=== PATIENT | male | born 1960 | race Caucasian/White ===

== ENCOUNTER 2017-11-04 03:11 | Observation (INO) | payer OTHER, SELFPAY ==
[2017-11-04] VITALS (15 sets, daily range): BP systolic 113–163; BP diastolic 66–90; PULSE 55–67; RESP 11–18; TEMP 36.4–36.8; O2SAT 95–98; BMI 30.7
--- NOTE | 2017-11-04 03:14 | ED.RN ---
CALLED FOR EKG PER RN REQUEST, PULLED OLD EKG'S FOR
--- NOTE | 2017-11-04 03:25 | EKG12_ITS ---
Test Reason : CP Blood Pressure : / mmHG Vent. Rate : 065 BPM Atrial Rate : 065 BPM P-R Int : 184 ms QRS Dur : 108 ms QT Int : 398 ms P-R-T Axes : 054 001 026 degrees QTc Int : 413 ms Normal sinus rhythm Normal ECG Confirmed by FELIX BOUDREAUX, BHARATHI ([id number]), rewrite editor FLACA DALY ([id number]) on 11/05/2017 2:34:22 PM Referred By: CAITIE Confirmed By:BHARATHI WASHINGTON MD
--- NOTE | 2017-11-04 03:30 | RAD_ITS ---
STUDY: X-RAY CHEST REASON FOR EXAM: Male, 57 years old. Chest pain TECHNIQUE: Frontal and lateral views of the chest. COMPARISON: 06/22/2016 FINDINGS: The lungs are clear and expanded. There is no demonstrated pleural abnormality. Normal size heart. Normal mediastinum and kiah. Normal visualized pulmonary arteries. Normal visualized aortic arch and descending thoracic aorta. Normal visualized thoracic spine. Normal visualized ribs, clavicles, and shoulders. Abdominal clips on the left. RAD/Chest PA and Lateral IMPRESSION: No acute pulmonary findings. Electronically Signed: Scooter Chin MD at 4:13 EDT Tel , Service support ,
[2017-11-04 03:34] LABS: Absolute Lymphocyte Count 2.26 X10^3/ul (0.83-4.51); Absolute Neutrophil Count 2.7 X10^3/uL (2.0-7.7); Basophil# 0.04 X10^3/uL; Basophil% 0.7 % (0-1); Eosinophil# 0.32 X10^3/uL; Eosinophils% 5.4 % (0-5); Hemoglobin 15.3 g/dl (13.0-16.5); Lymphocyte # 2.26 X10^3/ul (4.0); Lymphocyte % 37.8 % (19-41); Mean Corp Hgb Conc 34.8 g/gl (32-36); Mean Corpuscular Hgb 30.2 pg (27.0-32.0); Mean Corpuscular Volume 86.8 fL (80-94); Mean Platelet Vol. 9.3 fl (6.2-12.0); Monocyte# 0.62 X10^3/uL; Monocyte% 10.4 % (0-10); Neutrophil # 2.73 X10^3/uL (2.7-7.7); Neutrophil % 45.5 % (47-70); Platelet Count 230 K/mm3 (150-450); RBC Distribution Width CV 12.5 % (11.6-14.6); RBC Distribution Width SD 39.2 fl (35.1-43.9); Red Blood Count 5.07 M/mm3 (4.6-6.2)
[2017-11-04 03:37] LABS: POSITIVE COUNT NO; POSITIVE DIFFERENTIAL NO; POSITIVE MORPHOLOGY NO
[2017-11-04] MEDS: Aspirin 81 MG TAB.CHEW 324 MG PO (03:38)
[2017-11-04 04:09] LABS: Anion Gap 7 (5-15); BUN 14 mg/dL (7-18); BUN/Creat Ratio 17.3 RATIO (10-20); Calcium,Total 8.8 mg/dL (8.5-10.1); Chloride 109 mmol/L (98-107); Creatinine, Serum 0.81 mg/dL (0.70-1.30); EST Glomerular Filtration Rate 105 mL/min (>60); Est Glom Filt Rate - Afr Amer 127 mL/min (>60); Estimated Creatinine Clearance 121.71 ml/min; Glucose 98 mg/dL (74-106); Potassium 3.9 mmol/L (3.5-5.1); Sodium Level 142 mmol/L (136-145)
--- NOTE | 2017-11-04 04:30 | ED.DCSUM_ITS ---
- ER Visit Summary Date of Service: 11/04/17 Chief Complaint: Chest pain History of Present Illness: The patient is a 57 M who presents with chest pain. It began 2 hours ago. It woke him from sleep. It is intermittent. He states it lasts 3-5 minutes at a time and he describes this as a heaviness. Currently he is pain-free. However during his episodes of pain he rates this as severe at 10 out of 10. There is no associated nausea vomiting diaphoresis or shortness of breath. He also had some pain on the top of his left hand. He is a smoker but denies history of diabetes hypertension hyperlipidemia or family history of coronary disease. Physical Examination: Blood pressure 163/90 vitals otherwise unremarkable Moist mucous membranes Heart regular rate and rhythm Lungs are clear Abdomen soft Extremities nontender without edema 2+ radial pulses Alert Test Results: EKG shows sinus rhythm at a rate of 65 with no acute ischemic changes. CBC BMP unremarkable and troponin negative. Emergency Department Course and Treatment: Patient was given aspirin he had taken 1 baby aspirin prior to presentation here. His KUSH risk score is 2. His heart score is 2. Given the risk associated with KUSH risk score of 2 I recommended hospital observation for serial enzymes and EKG possible stress testing. Patient will be discussed with the hospitalist and admitted. Treatment Plan: [] Disposition: Admit Impression: Chest pain This note was generated with [employer] dictation software. It may contain incorrect words, spelling, and punctuation that were not noted in review of the chart prior to signing ED Disposition - Plan for ED Patient: Chief Complaint: Chest Pain Referrals: Nelli Kendall DO [Primary Care Provider] -
--- NOTE | 2017-11-04 05:15 | PCM.HP.STD ---
Problem List (1) HTN (hypertension) Status: Chronic (2) Chest pain Status: Acute (3) Tobacco abuse Status: Acute History of Present Illness Date of Admission: 11/04/17 Chief Complaint: Chest pain The patient is a 57 year old male w/ h/o HTN and tobacco abuse admitted for chest pain. 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 Pain lasted for minutes but would reoccurred. Pt also had to burp after the pain. Pain was not associated with exertion. No increase stressors or change in diet. He never had this type of pain before. Nothing made the pain better or worse. No radiation of pain. The intensity and frequency of the pain increased so he went to the ED for further workup. Past Medical History Past Medical History (Chronic Problems): Chronic Problems HTN (hypertension) (Chronic) Allergies LODINE Adverse Reaction (Uncoded 11/04/17 03:16) Nausea Home Medications: Ambulatory Orders Medication Instructions Recorded NK [NK] 11/04/17 Surgical History: no surgical history Lives: Alone Smoking Status: Current every day smoker Alcohol: None Drugs: None - *Family History Maternal History Items: No pertinent history Review of Systems Constitutional: Denies: Chills, Fever, Weight Change HEENT: Denies: Head Aches, Sinus Congestion, Sinus Drainage Cardiovascular: Reports: Chest Pain. Denies: Palpitations Respiratory: Denies: Cough, Shortness of breath at rest, Sputum production Gastrointestinal: Denies: Abdominal Pain, Nausea, Vomiting Genitourinary: Denies: Dysuria Musculoskeletal: Denies: Joint Pain, Joint Tenderness Skin: Denies: Rash, Wounds Neurological: Denies: Numbness, Tingling, Focal weakness Psychiatric: Denies: Anxiety, Depression, Homicidal Ideations, Suicidal Ideations Hematologic/ Lymphatic: Denies: Easy Bruising, Easy Bleeding VTE Information - Inpt Only VTE Present on Admission: No VTE Mechan Device Prophylaxis: SCD's VTE Pharm Prophylaxis ordered?: Yes Patient Problems: Active and Suspected Problems Chest pain (Acute) Tobacco abuse (Acute) - Physical Exam General: Alert, Oriented x3, Cooperative HEENT: Atraumatic, PERRLA, EOMI, Normocephalic Neck: Supple, No JVD, Negative Carotid Bruits Lungs: Clear to auscultation, Normal air movement Cardiovascular: Regular rate, No murmurs Abdomen: Bowel Sounds Present, Soft, Non Tender Extremities: No edema, Capillary Refill Less than 3 Seconds Skin: No rashes, No breakdown Musculoskeletal: No Tenderness to Palpation of Joints or Extremities Neurological: Cranial nerves II-XII grossly intact Psych/Mental Status: Normal Affect, Appropriate Vital Signs Temp Pulse Resp BP Pulse Ox 98.1 F 57 L 11 L 140/80 H 96 11/04/17 03:13 11/04/17 04:54 11/04/17 04:54 11/04/17 04:54 11/04/17 04:54 Oxygen Delivery Method Room Air Weight: 111.6 kg Body Mass Index (BMI) 30.7 Laboratory Tests Past 24 Hrs 11/04/17 11/04/17 03:20 03:20 WBC 6.0 RBC 5.07 Hgb 15.3 Hct 44.0 MCV 86.8 MCH 30.2 MCHC 34.8 RDW 12.5 RDW Differential 39.2 Plt Count 230 MPV 9.3 Immature Gran % (Auto) 0.200 Neut % (Auto) 45.5 L Lymph % (Auto) 37.8 [place] % (Auto) 10.4 H Eos % (Auto) 5.4 H Baso % (Auto) 0.7 Absolute Neuts (auto) 2.7 Absolute Lymphs (auto) 2.26 Total Counted Not Reportable Sodium 142 Potassium 3.9 Chloride 109 H Carbon Dioxide 26.0 Anion Gap 7 BUN 14 Creatinine 0.81 Estim Creat Clear Calc 121.71 Est GFR (MDRD) Af Amer 127 Est GFR (MDRD) Non-Af 105 BUN/Creatinine Ratio 17.3 Glucose 98 Calcium 8.8 Troponin I < 0.015 Assessment/Plan Active and Suspected Problems Chest pain (Acute) Tobacco abuse (Acute) 57 year old male w/ h/o HTN and tobacco abuse admitted for chest pain. 1) Chest pain: Heart score 2 EKG and chest xray wnl. Will get serial trops. Will also start ASA, lipitor, and coreg. Nitro PRN. ECHO in AM. Stress test in AM. 2) HTN: SBP 120s. C/w coreg. 3) Tobacco abuse: Education. Supportive care. 4) Prophylaxis: Lovenox / SCD.
--- NOTE | 2017-11-04 05:55 | ECHOD_ITS ---
Reason For Study: AFIB Procedure This was a 2D Doppler, Color Flow transthoracic echocardiogram. Exam performed portable in patient room. Left Ventricle Normal LV size. Left ventricular systolic function is normal. The estimated ejection fraction is 60 %. No evidence for diastolic dysfunction. No regional wall motion abnormalities noted. Right Ventricle Normal RV size. Normal systolic function. Atria The left atrium is mildly enlarged. The right atrium is mildly enlarged. Mitral Valve There is mild mitral annular calcification. Trivial eccentric mitral valve insufficiency. Tricuspid Valve Normal tricuspid valve. Aortic Valve Trisinus/trileaflet aortic valve. Pulmonic Valve The pulmonic valve is not well visualized. Great Vessels Normal aortic root. The pulmonary artery is normal size. Normal inferior vena cava. Pericardium/Pleural No pericardial effusion. MMode/2D Measurements & Calculations LVIDd: 6.0 cm IVSd: 0.84 cm Ao root diam: 2.9 cm LVIDs: 3.5 cm LVPWd: 1.1 cm LA dimension: 4.1 cm RVDd: 3.3 cm FS: 42.1 % LAV(MOD-bp): 74.1 ml EDV(MOD-sp4): 158.6 ml EDV(MOD-sp2): 126.2 ml LAV(MOD-bp) Indexed: 31.0 ml/m2 ESV(MOD-sp4): 60.3 ml EF(MOD-sp2): 62.1 % LAV(MOD-sp2): 84.9 ml EF(MOD-sp4): 62.0 % LAV(MOD-sp4): 59.5 ml SV(MOD-sp4): 98.3 ml SV(MOD-sp2): 78.4 ml LA A4 area: 22.3 cm2 RA A4 area: 21.1 cm2 Doppler Measurements & Calculations MV E max camron: 77.5 cm/sec Lat Peak E' Camron: 11.1 cm/sec Med Peak E' Camron: 7.9 cm/sec MV A max camron: 76.3 cm/sec E/E' lat: 7.0 E/E' med: 9.8 MV E/A: 1.0 Ao V2 max: 170.9 cm/sec LV V1 max: 146.7 cm/sec Ao max P.7 mmHg LV V1 max P.6 mmHg Interpretation Summary Normal LV size. Left ventricular systolic function is normal. The estimated ejection fraction is 60 %. No evidence for diastolic dysfunction. There is mild mitral annular calcification. Trivial eccentric mitral valve insufficiency. Ordering Physician: David Bloom Referring Physician: SALOME SHULTZ Performed By: Melissa Posadas, THAOCS, RVT
--- NOTE | 2017-11-04 05:57 | EKG12_ITS ---
Test Reason : AM EKG Blood Pressure : / mmHG Vent. Rate : 057 BPM Atrial Rate : 057 BPM P-R Int : 188 ms QRS Dur : 108 ms QT Int : 414 ms P-R-T Axes : 051 001 021 degrees QTc Int : 402 ms Sinus bradycardia Otherwise normal ECG When compared with ECG of 04-NOV-2017 13:12, MANUAL COMPARISON REQUIRED, DATA IS UNCONFIRMED Confirmed by FELIX BOUDREAUX, BHARATHI ([id number]), news video editor FLACA DALY ([id number]) on 11/06/2017 3:20:31 PM Referred By: NINA Confirmed By:BHARATHI WASHINGTON MD
[2017-11-04] MEDS: Enoxaparin 40 MG/0.4 ML Syringe SC (06:27)
--- NOTE | 2017-11-04 06:41 | PN_ITS ---
Patient Problems: Active and Suspected Problems Chest pain (Acute) Tobacco abuse (Acute) Subjective: The patient is a 57-year-old male with a past medical history of tobacco dependence who presented to the [facility] emergency department on 11/04/2017 complaining of chest pain that awoke him from sleep. Troponin was less than 0.015 at admission. Chest x-ray showed no pulmonary vascular congestion, pleural effusions or infiltrates. EKG showed normal sinus rhythm with no acute ischemic change. He was admitted to a monitored bed on the progressive care unit and serial cardiac enzymes, echocardiogram and stress test were ordered. He was started on aspirin 81 mg daily, atorvastatin 40 mg nightly, Coreg 6.25 mg twice daily and sublingual nitroglycerin. Heart score is 2. Risk factors include age > 45, smoking....he denies any hx of HTN......this dx was made when the BP was increased at presentation to the ED Afebrile, vital signs stable. Blood pressure has improved since presentation to the emergency room and the current blood pressure is 132/82. He is 96-98% saturated on room air. CP awoke him from sleep at about 0130. It was in the left chest and was severe ......he also had some pain in the Left hand at the same time. He did not get nauseated or diaphoretic and he denies SOB. There is no FH of CVD. Mother and father are both alive with no significant medical hx. He has a brother who is diabetic but has no hx of CAD. He denies pain with climbing steps, lifting 20 lbs at work. No pain since admission to the hospital. Telemetry shows NSR with no significant ectopy. Troponin X 3 are negative. EKG's without pain are normal with no evidence ischemia. Has never had a stress test. Objective: General: alert, oriented X3, NAD, appropriate with normal affect Neck: supple, trachea midline, carotids have brisk upstroke and normal pulse volume, no JVD, no carotid bruits Lungs: CTA, diminished, symmetric chest expansion, not tachypneic, able to lie flat with no respiratory distress Heart: Regular rate and rhythm, normal S1, normal S2, no murmur, no gallop, no rub, PMI is on the midclavicular line Abdomen: soft, NT, ND, BS's present Extremities: no edema, no calf tenderness, peripheral pulses are normal - Physical Exam Vital Signs Temp Pulse Resp BP Pulse Ox 97.5 F L 61 18 131/73 H 97 11/04/17 06:00 11/04/17 06:00 11/04/17 06:00 11/04/17 06:01 11/04/17 06:00 Oxygen Delivery Method Room Air Weight: 238 lb 12.17 oz Body Mass Index (BMI) 30.7 Medical Necessity - Tobacco Use Smoking Status: Current every day smoker Assessment/Plan Active and Suspected Problems Chest pain (Acute) Tobacco abuse (Acute) Impressions 1. chest pain in a male pt with a heart score of 2......low risk 2. HTN? - he does not carry this diagnosis....this was made based on the BP's in the ED last night 3. tobacco dependence He is at low risk. Will DC the Atorvastatin and the beta alta. Continue the ASA. Smoking cessation counselling given. He would like to quit and is requesting Nicotine gum Encouraged him to ambulate in the halls and to notify his nurse if any chest comfort so that we may obtain a EKG with CP ECHO in the AM to evaluate wall motion, chamber size and LV wall thickness Stress in the AM Continue to monitor the BP......if it increases or if he has LVH on the ECHO will need to be discharged on an antihypertensive....would likely pick a once a day drug such as Atenolol or and CHETAN or ARB
[2017-11-04 06:55] LABS: Hematocrit 42.4 % (40-54); Hemoglobin 14.3 g/dl (13.0-16.5); Mean Corp Hgb Conc 33.7 g/gl (32-36); Mean Corpuscular Hgb 29.4 pg (27.0-32.0); Mean Corpuscular Volume 87.1 fL (80-94); Mean Platelet Vol. 9.4 fl (6.2-12.0); Platelet Count 185 K/mm3 (150-450); RBC Distribution Width CV 12.6 % (11.6-14.6); RBC Distribution Width SD 40.2 fl (35.1-43.9); Red Blood Count 4.87 M/mm3 (4.6-6.2)
[2017-11-04 06:57] LABS: Scan Indicated on CBC? Y/N NO
[2017-11-04 07:05] LABS: D-Dimer Quantitative (DVT/PE) 0.34 FEU/ug/m (0.27-0.49)
[2017-11-04 07:14] LABS: ALB/GLOB Ratio 1.2 RATIO (0.9-2.4); AST(SGOT) 18 U/L (15-37); Alanine Aminotransfer ALT/SGPT 24 U/L (16-61); Albumin, Serum 3.7 g/dL (3.2-5.0); Alkaline Phosphatase 60 U/L (45-117); Anion Gap 5 (5-15); BUN 13 mg/dL (7-18); BUN/Creat Ratio 20.5 RATIO (10-20); Calcium,Total 8.5 mg/dL (8.5-10.1); Chloride 109 mmol/L (98-107); Cholesterol 149 mg/dL (200); Creatinine, Serum 0.63 mg/dL (0.70-1.30); EST Glomerular Filtration Rate 139 mL/min (>60); Est Glom Filt Rate - Afr Amer 168 mL/min (>60); Estimated Creatinine Clearance 152.22 ml/min; Glucose 97 mg/dL (74-106); High Density Lipoprotein 45 mg/dL; Potassium 3.9 mmol/L (3.5-5.1); Protein, Total 6.7 g/dL (6.4-8.2); Sodium Level 139 mmol/L (136-145); Triglycerides 52 mg/dL; Very Low Density Lipoprotein 10 mg/dL (5-40)
[2017-11-04 07:20] LABS: Thyroid Stim Hormone (TSH) 0.77 uIU/mL (0.358-3.74)
[2017-11-04 09:37] LABS: Amphetamine Urine VISTA NEGATIVE (<1000 ng/mL); Barbiturate Urine VISTA NEGATIVE (< 200 ng/mL); Benzodiazepine Urine VISTA NEGATIVE (< 200 ng/mL); Cocaine Urine VISTA NEGATIVE (< 300 ng/mL); Ecstacy Urine VISTA NEGATIVE (< 500 ng/mL); Methadone Urine VISTA NEGATIVE (< 300 ng/mL); PCP Urine VISTA NEGATIVE (< 25 ng/mL); THC Urine VISTA NEGATIVE (< 50 ng/mL); Vista UDS pH Range 7
[2017-11-04] MEDS: Carvedilol 6.25 MG Tablet PO (10:21)
[2017-11-04] MEDS: 0.9% NaCl Peripheral Flush Adult/Peds IV (10:21)
--- NOTE | 2017-11-04 13:03 | EKG12_ITS ---
Test Reason : CP Blood Pressure : / mmHG Vent. Rate : 062 BPM Atrial Rate : 062 BPM P-R Int : 192 ms QRS Dur : 098 ms QT Int : 374 ms P-R-T Axes : 048 013 017 degrees QTc Int : 379 ms Normal sinus rhythm Normal ECG When compared with ECG of 04-NOV-2017 05:55, MANUAL COMPARISON REQUIRED, DATA IS UNCONFIRMED Confirmed by FELIX BOUDREAUX, BHARATHI ([id number]), acquisition editor FLACA DALY ([id number]) on 11/06/2017 3:22:12 PM Referred By: NINA Confirmed By:BHARATHI WASHINGTON MD
[2017-11-04] MEDS: BENZOCAINE/MENTHOL 1 LOZENGE MUCOUS MEM ×2 (13:05→21:56)
[2017-11-04] MEDS: Nicotine Polacrilex 2 MG GUM PO ×3 (13:40→21:52)
[2017-11-05 02:59] VITALS: PULSE 56
[2017-11-05 04:37] VITALS: BP 137/76; PULSE 51; RESP 16; TEMP 36.8; O2SAT 96
[2017-11-05 05:52] LABS: Absolute Lymphocyte Count 1.79 X10^3/ul (0.83-4.51); Absolute Neutrophil Count 2.8 X10^3/uL (2.0-7.7); Basophil# 0.03 X10^3/uL; Basophil% 0.6 % (0-1); Eosinophil# 0.31 X10^3/uL; Eosinophils% 5.9 % (0-5); Hematocrit 45.5 % (40-54); Hemoglobin 15.3 g/dl (13.0-16.5); Lymphocyte # 1.79 X10^3/ul (4.0); Lymphocyte % 33.9 % (19-41); Mean Corp Hgb Conc 33.6 g/gl (32-36); Mean Corpuscular Hgb 29.4 pg (27.0-32.0); Mean Corpuscular Volume 87.5 fL (80-94); Mean Platelet Vol. 9.6 fl (6.2-12.0); Monocyte# 0.38 X10^3/uL; Monocyte% 7.2 % (0-10); Neutrophil # 2.76 X10^3/uL (2.7-7.7); Neutrophil % 52.2 % (47-70); Platelet Count 215 K/mm3 (150-450); RBC Distribution Width CV 12.6 % (11.6-14.6); RBC Distribution Width SD 40.2 fl (35.1-43.9); White Blood Count 5.3 K/mm3 (4.4-11.0)
--- NOTE | 2017-11-05 05:55 | EKG12_ITS ---
Test Reason : CP Blood Pressure : / mmHG Vent. Rate : 058 BPM Atrial Rate : 058 BPM P-R Int : 184 ms QRS Dur : 104 ms QT Int : 412 ms P-R-T Axes : 039 015 027 degrees QTc Int : 404 ms Sinus bradycardia Otherwise normal ECG When compared with ECG of 22-JUN-2016 16:21, No significant change was found Confirmed by FELIX BOUDREAUX, BHARATHI ([id number]), television news video editor FLACA DALY ([id number]) on 11/06/2017 3:23:01 PM Referred By: NINA Confirmed By:BHARATHI WASHINGTON MD
[2017-11-05 06:00] LABS: Partial Thromboplast Time 34.2 Seconds (24.1-36.2); Prothrombin Time (Protime)PT. 13.2 SECONDS (11.7-14.9)
[2017-11-05 06:01] LABS: Anion Gap 7 (5-15); BUN 14 mg/dL (7-18); Calcium,Total 8.9 mg/dL (8.5-10.1); Chloride 106 mmol/L (98-107); Creatinine, Serum 0.78 mg/dL (0.70-1.30); EST Glomerular Filtration Rate 110 mL/min (>60); Est Glom Filt Rate - Afr Amer 132 mL/min (>60); Estimated Creatinine Clearance 122.95 ml/min; Glucose 102 mg/dL (74-106); Potassium 4.2 mmol/L (3.5-5.1); Sodium Level 141 mmol/L (136-145)
[2017-11-05] MEDS: Aspirin E.C. 81 MG Tablet PO (06:04)
[2017-11-05 06:15] LABS: POSITIVE COUNT NO; POSITIVE DIFFERENTIAL NO; POSITIVE MORPHOLOGY NO
[2017-11-05 06:52] VITALS: PULSE 48
[2017-11-05 10:10] VITALS: BP 127/77; PULSE 61; RESP 16; TEMP 36.6; O2SAT 96
[2017-11-05] MEDS: Nicotine Polacrilex 2 MG GUM PO (10:16)
[2017-11-05] MEDS: BENZOCAINE/MENTHOL 1 LOZENGE MUCOUS MEM (10:16)
[2017-11-05 11:07] VITALS: PULSE 64
--- NOTE | 2017-11-05 13:26 | STRESSREP_ITS ---
Stress Test Report Exercise myocardial perfusion stress test. 57-year-old man with a history of chest pain. Stress protocol: Resting EKG demonstrates normal sinus rhythm with a rate of 61 beats minute normal intervals and noted resting blood pressure is 124/88 mmHg. The patient exercised according to regular Cabrera protocol for total duration of 8 minutes completing 2 minutes into stage III of the Cabrera protocol the maximum heart rate attained was 139 bpm which was 84% of maximum predicted heart rate the maximum workload attained was 10.1 metabolic equivalents. Patient maintained sinus rhythm throughout the recording. At rest there were no ST or T-wave changes noted suggest ischemia peak exercise upsloping ST changes only were noted with no meet the criteria for ischemia. No clinical angina was noted. The test was terminated due to leg fatigue. The resting blood pressure is 124/ 88 with a peak blood pressure 172/80 mmHg. Cardial perfusion protocol. 13.3 mCi of technetium 99m sestamibi was injected at rest. The patient exercised a consult regular Cabrera protocol for 8 minutes attaining 84% of maximum predicted heart rate at peak exercise 45.0 mCi of technetium 99m sestamibi was injected stress images were obtained stress and rest images were reconstructed and compared in the short axis vertical long and horizontal long axis. Gated images were also obtained pre- Perfusion SPECT analysis: Review of the stress images demonstrate normal uptake of tracer noted in all areas of the myocardium. The resting images similarly demonstrate normal uptake of tracer noted in all areas of the myocardium. No areas of reversibility are noted suggest ischemia and no previous infarct is noted. Gated SPECT analysis: The gated ejection fraction is 64%. Conclusion: Exercise myocardial perfusion stress test with no evidence of ischemia at a high workload. No clinical angina noted. Preserved ejection fraction.
[2017-11-05 15:02] VITALS: PULSE 64
--- NOTE | 2017-11-05 15:38 | PCM.DC ---
- Discharge Diagnoses Current Active Problems: Current Active and Chronic Problems HTN (hypertension) (Chronic) Chest pain (Acute) Tobacco abuse (Acute) You will use the following diet at home:: No restrictions Your food should be the consistency of: Regular Your liquids should be the consistency of: Regular/Thin Discharge Activity: Return to Normal Activity Call your doctor if you observe: Fever of 101 or Higher, Shortness of breath, Dizziness, Fainting spells, Swelling in the ankles, Chest pain Additional Instructions: The stress test showed no evidence that there is any significant disease in the arteries in your heart. The heart squeezes noramlly and there was no problem with the rhythm of the heart on the clinical research monitor. I do recommend that you stop smoking before you develop significant coronary disease. I also recommend that you take 1 baby aspirin daily to help prevent strokes and heart attacks. Pending Tests on Discharge: none Allergies/Adverse Reactions: Allergies LODINE Adverse Reaction (Uncoded 11/04/17 03:16) Nausea Medications to take at Discharge NK [NK] 11/04/17 Primary Care Physician: Nelli Kendall DO [Primary Care Provider] - Please follow up with your Primary Care Physician in: as needed Proposed Discharge Date: 11/05/17
--- NOTE | 2017-11-05 15:44 | DCINST_ITS ---
- Discharge Diagnoses Current Active Problems: Current Active and Chronic Problems HTN (hypertension) (Chronic) Chest pain (Acute) Tobacco abuse (Acute) You will use the following diet at home:: No restrictions Your food should be the consistency of: Regular Your liquids should be the consistency of: Regular/Thin Discharge Activity: Return to Normal Activity Call your doctor if you observe: Fever of 101 or Higher, Shortness of breath, Dizziness, Fainting spells, Swelling in the ankles, Chest pain Additional Instructions: The stress test showed no evidence that there is any significant disease in the arteries in your heart. The heart squeezes noramlly and there was no problem with the rhythm of the heart on the residential monitor. I do recommend that you stop smoking before you develop significant coronary disease. I also recommend that you take 1 baby aspirin daily to help prevent strokes and heart attacks. Pending Tests on Discharge: none Allergies/Adverse Reactions: Allergies LODINE Adverse Reaction (Uncoded 11/04/17 03:16) Nausea Medications to take at Discharge NK [NK] 11/04/17 Primary Care Physician: Nelli Kendall DO [Primary Care Provider] - Please follow up with your Primary Care Physician in: as needed Proposed Discharge Date: 11/05/17
--- NOTE | 2017-11-05 15:44 | PCM.DC.SUM ---
Discharge Date and Diagnosis Date of Admission: 11/04/17 Date of Discharge: 11/05/17 - Primary Discharge Diagnosis Active and Suspected Problems Chest pain (Acute) - non-cardiac, suspect GERD or musculoskeletal HTN - ruled out - Secondary Discharge Diagnosis Tobacco dependence Hospital Course and Treatment Imaging Results: Clinical Impression(s) from Imaging Studies Chest X-Ray 11/04/17 03:30 IMPRESSION: No acute pulmonary findings. Electronically Signed: Scooter Chin MD at 4:13 EDT Tel , Service support , Laboratory Tests 11/04/17 11/04/17 11/04/17 03:20 03:20 06:35 WBC 6.0 5.0 RBC 5.07 4.87 Hgb 15.3 14.3 Hct 44.0 42.4 MCV 86.8 87.1 MCH 30.2 29.4 MCHC 34.8 33.7 RDW 12.5 12.6 RDW Differential 39.2 40.2 Plt Count 230 185 MPV 9.3 9.4 Immature Gran % (Auto) 0.200 Neut % (Auto) 45.5 L Lymph % (Auto) 37.8 [place] % (Auto) 10.4 H Eos % (Auto) 5.4 H Baso % (Auto) 0.7 Absolute Neuts (auto) 2.7 Absolute Lymphs (auto) 2.26 Total Counted Not Reportable PT INR APTT D-Dimer Quant (PE/DVT) Sodium 142 Potassium 3.9 Chloride 109 H Carbon Dioxide 26.0 Anion Gap 7 BUN 14 Creatinine 0.81 Estim Creat Clear Calc 121.71 Est GFR (MDRD) Af Amer 127 Est GFR (MDRD) Non-Af 105 BUN/Creatinine Ratio 17.3 Glucose 98 Calcium 8.8 Total Bilirubin AST ALT Alkaline Phosphatase Troponin I < 0.015 Total Protein Albumin Globulin Albumin/Globulin Ratio Triglycerides Cholesterol LDL Cholesterol VLDL Cholesterol HDL Cholesterol TSH Urine Opiates Screen Urine Methadone Screen Ur Barbiturates Screen Ur Phencyclidine Scrn Ur Amphetamines Screen U Methamphetamin-MDMA U Benzodiazepines Scrn Urine Cocaine Screen U Cannabinoids Screen Ur Drug Screen Comment 11/04/17 11/04/17 11/04/17 06:35 06:35 06:35 WBC RBC Hgb Hct MCV MCH MCHC RDW RDW Differential Plt Count MPV Immature Gran % (Auto) Neut % (Auto) Lymph % (Auto) [place] % (Auto) Eos % (Auto) Baso % (Auto) Absolute Neuts (auto) Absolute Lymphs (auto) Total Counted PT INR APTT D-Dimer Quant (PE/DVT) 0.34 Sodium 139 Potassium 3.9 Chloride 109 H Carbon Dioxide 25.0 Anion Gap 5 BUN 13 Creatinine 0.63 L Estim Creat Clear Calc 152.22 Est GFR (MDRD) Af Amer 168 Est GFR (MDRD) Non-Af 139 BUN/Creatinine Ratio 20.5 H Glucose 97 Calcium 8.5 Total Bilirubin 0.60 AST 18 ALT 24 Alkaline Phosphatase 60 Troponin I Total Protein 6.7 Albumin 3.7 Globulin 3.0 Albumin/Globulin Ratio 1.2 Triglycerides 52 Cholesterol 149 LDL Cholesterol 94 VLDL Cholesterol 10 HDL Cholesterol 45 TSH 0.77 Urine Opiates Screen Urine Methadone Screen Ur Barbiturates Screen Ur Phencyclidine Scrn Ur Amphetamines Screen U Methamphetamin-MDMA U Benzodiazepines Scrn Urine Cocaine Screen U Cannabinoids Screen Ur Drug Screen Comment 11/04/17 11/04/17 11/04/17 06:35 08:40 09:47 WBC RBC Hgb Hct MCV MCH MCHC RDW RDW Differential Plt Count MPV Immature Gran % (Auto) Neut % (Auto) Lymph % (Auto) [place] % (Auto) Eos % (Auto) Baso % (Auto) Absolute Neuts (auto) Absolute Lymphs (auto) Total Counted PT INR APTT D-Dimer Quant (PE/DVT) Sodium Potassium Chloride Carbon Dioxide Anion Gap BUN Creatinine Estim Creat Clear Calc Est GFR (MDRD) Af Amer Est GFR (MDRD) Non-Af BUN/Creatinine Ratio Glucose Calcium Total Bilirubin AST ALT Alkaline Phosphatase Troponin I < 0.015 < 0.015 Total Protein Albumin Globulin Albumin/Globulin Ratio Triglycerides Cholesterol LDL Cholesterol VLDL Cholesterol HDL Cholesterol TSH Urine Opiates Screen NEGATIVE Urine Methadone Screen NEGATIVE Ur Barbiturates Screen NEGATIVE Ur Phencyclidine Scrn NEGATIVE Ur Amphetamines Screen NEGATIVE U Methamphetamin-MDMA NEGATIVE U Benzodiazepines Scrn NEGATIVE Urine Cocaine Screen NEGATIVE U Cannabinoids Screen NEGATIVE Ur Drug Screen Comment 11/05/17 11/05/17 11/05/17 05:20 05:20 05:20 WBC 5.3 RBC 5.20 Hgb 15.3 Hct 45.5 MCV 87.5 MCH 29.4 MCHC 33.6 RDW 12.6 RDW Differential 40.2 Plt Count 215 MPV 9.6 Immature Gran % (Auto) 0.200 Neut % (Auto) 52.2 Lymph % (Auto) 33.9 [place] % (Auto) 7.2 Eos % (Auto) 5.9 H Baso % (Auto) 0.6 Absolute Neuts (auto) 2.8 Absolute Lymphs (auto) 1.79 Total Counted Not Reportable PT 13.2 INR 1.0 APTT 34.2 D-Dimer Quant (PE/DVT) Sodium 141 Potassium 4.2 Chloride 106 Carbon Dioxide 28.0 Anion Gap 7 BUN 14 Creatinine 0.78 Estim Creat Clear Calc 122.95 Est GFR (MDRD) Af Amer 132 Est GFR (MDRD) Non-Af 110 BUN/Creatinine Ratio 18.0 Glucose 102 Calcium 8.9 Total Bilirubin AST ALT Alkaline Phosphatase Troponin I Total Protein Albumin Globulin Albumin/Globulin Ratio Triglycerides Cholesterol LDL Cholesterol VLDL Cholesterol HDL Cholesterol TSH Urine Opiates Screen Urine Methadone Screen Ur Barbiturates Screen Ur Phencyclidine Scrn Ur Amphetamines Screen U Methamphetamin-MDMA U Benzodiazepines Scrn Urine Cocaine Screen U Cannabinoids Screen Ur Drug Screen Comment none Operations: None Procedures: 2-D Echocardiogram, Stress test Summary of Care Provided: The patient is a 57-year-old male with a past medical history of tobacco dependence who presented to the [facility] emergency department on 11/04/2017 complaining of chest pain that awoke him from sleep. Vital signs at presentation to the emergency room were temperature 98.1, pulse rate 66, blood pressure 163/90, respiratory rate 16 and he was 98% saturated on room air. Troponin was less than 0.015 at admission. Chest x-ray showed no pulmonary vascular congestion, pleural effusions or infiltrates. EKG showed normal sinus rhythm with no acute ischemic change. He was admitted to a monitored bed on the progressive care unit and serial cardiac enzymes, echocardiogram and stress test were ordered. He was started on aspirin 81 mg daily, atorvastatin 40 mg nightly, Coreg 6.25 mg twice daily and sublingual nitroglycerin. Serial cardiac enzymes were negative. Triglycerides were 52 and cholesterol was 149. The LDL was 94 and the HDL was 45. Echocardiogram showed normal left ventricular systolic function with a 60% ejection fraction. There was no evidence of diastolic dysfunction and there was no significant valvular heart disease. On 11/05/2017 he had a treadmill nuclear stress test and exercised 8 minutes completing minutes into stage III of the Cabrera protocol. The maximum heart rate was 139 which is 84% of his age-predicted maximum heart rate. Were no significant ST or T-wave changes and the test was terminated due to leg fatigue. Nuclear images showed normal uptake of tracer in all areas of the myocardium and there were no areas of reversibility to suggest ischemia. The gated nuclear ejection fraction was 64%. Blood pressures following admission to the floor were within normal limits. He was discharged home and will follow up with Dr. Kendall should he have recurrent chest pains. This note was generated with [employer] dictation software. It may contain incorrect words, spelling, and punctuation that were not noted in checking the note before signing. Discharge Activity: Return to Normal Activity Call your doctor if you observe: Fever of 101 or Higher, Shortness of breath, Dizziness, Fainting spells, Swelling in the ankles, Chest pain Home Medications: Medications to take at Discharge NK [NK] 11/04/17 Primary Care Physician: Nelli Kendall DO [Primary Care Provider] - Please follow up with your Primary Care Physician in: as needed Disposition: Home Minutes spent on discharge:: 30 Patient Condition:: Good Medical Necessity - Tobacco Use Smoking Status: Current every day smoker Meaningful Use Info Meaningful Use Diagnoses (Choose all that apply): None applicable Code Visit OBSV E&M: 26480 Observation care discharge
== END 2017-11-05 15:54 | disposition home or self-care (01) ==
LOC: ED 03:38 → PCU 05:16
PROVIDERS: Admitting Provider Internal Medicine; Emergency Provider Emergency Medicine; Family Provider Internal Medicine; PCP Internal Medicine; Visit Provider Internal Medicine
DX: R07.89 Other chest pain (principal); R03.0 Elevated blood-pressure reading, without diagnosis of hypertension; F17.200 Nicotine dependence, unspecified, uncomplicated; I34.0 Nonrheumatic mitral (valve) insufficiency
CPT/HCPCS: 36415; 71046; 78452; 80048; 80053; 80061; 80307; 84443; 84484; 85025; 85027; 85379; 85610; 85730; 93005; 93017; 93306; 96372; 97802; 99218; 99285; 99406; A9500; A4216; G0378; J2785

== ENCOUNTER → 2018-04-29 16:35 | Outpatient (CLI) | payer OTHER, SELFPAY ==
[2018-04-29 18:01] LABS: Hematocrit 41.3 % (40-54); Hemoglobin 13.7 g/dl (13.0-16.5); Mean Corp Hgb Conc 33.2 g/gl (32-36); Mean Corpuscular Hgb 29.1 pg (27.0-32.0); Mean Corpuscular Volume 87.9 fL (80-94); Mean Platelet Vol. 9.1 fl (6.2-12.0); Platelet Count 307 K/mm3 (150-450); RBC Distribution Width SD 41.3 fl (35.1-43.9); White Blood Count 5.5 K/mm3 (4.4-11.0)
[2018-04-29 18:04] LABS: Scan Indicated on CBC? Y/N NO
[2018-04-29 18:21] LABS: Erythrocyte Sedimentation Rate 19 mm/hr (0-20)
[2018-05-03 16:38] LABS: B. quintana IgG Negative titer (Neg:<1:320)
[2018-05-04 11:48] LABS: Angiotensin Convert Enzyme 48 U/L (14-82); B. quintana IgM Negative titer (Neg:<1:100)
== END ==
PROVIDERS: Family Provider Internal Medicine; PCP Internal Medicine; Referring Provider Ophthalmology; Visit Provider Ophthalmology
DX: H47.10 Unspecified papilledema (principal)
CPT/HCPCS: 36415; 82164; 85027; 85652; 86140; 86611

== ENCOUNTER 2023-01-27 15:13 | Emergency (ER) | payer OTHER, SELFPAY ==
[2023-01-27 15:15] VITALS: BP 136/87; PULSE 73; RESP 16; TEMP 36.2; O2SAT 97; BMI 35.9
--- NOTE | 2023-01-27 15:23 | EX.ED.DYSGE1 ---
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 He reports that he is able to ambulate but it is becoming increasingly more difficult and painful. He reports that there is an area of swelling and bruising to his left lateral malleolus. He denies any other injury. PFSH <CHANDU Garsia - Last Filed: 01/27/23 16:35> [facility] Home Medications NK 11/04/17 [History Last Taken Unknown] Allergy/AdvReac Type Severity Reaction Status Date / Time etodolac AdvReac Nausea Verified 01/27/23 15:15 Social History Smoking Status: Current every day smoker tobacco type: cigarettes ROS <CHANDU Garsia - Last Filed: 01/27/23 16:35> ROS ED Constitutional Constitutional ED: Denies chills or fever(s) Cardiovascular Cardiovascular: Denies chest pain or palpitations Respiratory/Chest Respiratory/Chest: Denies cough or dyspnea Gastrointestinal Gastrointestinal: Denies abdominal pain, nausea or vomiting Musculoskeletal Musculoskeletal: Reports arthralgias; Denies myalgias Integumentary Denies rash Neurologic Neurologic: Denies paresthesias or weakness EXAM <CHANDU Garsia - Last Filed: 01/27/23 16:35> Physical Exam Const Vital Signs: 01/27/23 15:15 Temperature 97.2 F L Temperature Source Temporal Pulse Rate 73 Respiratory Rate 16 Blood Pressure 136/87 H Blood Pressure Mean 103 Pulse Ox 97 Oxygen Delivery Method Room Air Positive well nourished, well developed and no apparent distress General Appearance ED: well developed HEENT Reports normocephalic and head/scalp atraumatic Mouth ED: Yes moist mucous membranes normal Eyes PERRL and EOMs intact bilaterally Neck full ROM and supple Chest Wall inspection of chest normal Resp normal respiratory effort and clear to auscultation bilaterally Cardio regular rate and regular rhythm GI soft to palpation, non-tender, non-distended and no masses Back/Spine normal ROM and normal to inspection Extremity Extremity Narrative: Limited range of motion to the left ankle due to pain. Left lateral malleolus pain to palpation with edema. DP pulses 2+ and equal bilaterally, good capillary refill, sensation intact. Neuro oriented x3, CN's II-XII intact bilaterally, moves all extremities, no focal motor deficits and no sensory deficits noted Sensorium / Orientation: awake and alert Psych mental status grossly normal and thought process normal Skin no rashes or lesions noted and no wounds <Dr. Julian Beard MD - Last Filed: 01/27/23 16:03> Physical Exam Const Vital Signs: 01/27/23 15:15 Temperature 97.2 F L Temperature Source Temporal Pulse Rate 73 Respiratory Rate 16 Blood Pressure 136/87 H Blood Pressure Mean 103 Pulse Ox 97 Oxygen Delivery Method Room Air MDM <CHANDU Garsia - Last Filed: 01/27/23 16:35> [facility] Narrative Medical decision making narrative: Patient presenting today with pain to his left ankle after inverting it a few days ago while stepping off of a motor. He is well-appearing and in no acute distress. X-ray will be obtained of the left ankle to rule out fracture. He has been given ibuprofen for pain. X-rays negative for fracture. He has been given an Aircast and RICE instructions. He is to alternate Tylenol and ibuprofen for pain. Patient requested 4 to 5 days off work, he reports that he needs a work note for today and has tomorrow off, I have given him a work note stating he can go back on Sunday. He will be discharged with stable condition and is comfortable with plan. I have personally performed a face to face assessment of the patient and have reviewed the YAMILA Note. I performed a substantive portion of the visit including all aspects of the following. My steinberg findings include: History is remarkable plantar eversion mechanism injury. Patient injured himself 1 week ago at work. Patient complains of pain with ambulation. There is also complaint of swelling. He does have history of hypertension. He denies paresthesia, anesthesia medics. He does walk with a limp. Exam is remarkable pain to palpation over distal 3 cm of the lateral malleolus. There is pain palpation over the anterior talofibular with. There is no laxity with drawer testing. There is no pain to palpation of the base of the fifth metatarsal. DP pulses palpable. Medical Decision Making x-ray was obtained to evaluate for sprain versus fracture. Three-view x-ray of the ankle was independent reviewed interpreted by me as negative for fracture. There is mild soft tissue swelling noted. There is no widening of the mortise. There is no fracture noted of the lateral or medial malleolus. There is no abnormality of the talus or calcaneus. He does have a spur noted. The base of the fifth metatarsal is normal. Other additions or changes: Patient requested 4 to 5 days off. Patient was not given time off. Radiography Diagnostic Testing: Clinical Impression(s) from Imaging Studies Ankle X-Ray 01/27/23 15:40 IMPRESSION: No acute bone or joint abnormality. Electronically Signed: Valerio Muhammad MD at 15:55 EDT , <Dr. Julian Beard MD - Last Filed: 01/27/23 16:03> [facility] Narrative Medical decision making narrative: Patient presenting today with pain to his left ankle after inverting it a few days ago while stepping off of a motor. He is well-appearing and in no acute distress. X-ray will be obtained of the left ankle to rule out fracture. He has been given ibuprofen for pain. I have personally performed a face to face assessment of the patient and have reviewed the YAMILA Note. I performed a substantive portion of the visit including all aspects of the following. My steinberg findings include: History is remarkable plantar eversion mechanism injury. Patient injured himself 1 week ago at work. Patient complains of pain with ambulation. There is also complaint of swelling. He does have history of hypertension. He denies paresthesia, anesthesia medics. He does walk with a limp. Exam is remarkable pain to palpation over distal 3 cm of the lateral malleolus. There is pain palpation over the anterior talofibular with. There is no laxity with drawer testing. There is no pain to palpation of the base of the fifth metatarsal. DP pulses palpable. Medical Decision Making x-ray was obtained to evaluate for sprain versus fracture. Three-view x-ray of the ankle was independent reviewed interpreted by me as negative for fracture. There is mild soft tissue swelling noted. There is no widening of the mortise. There is no fracture noted of the lateral or medial malleolus. There is no abnormality of the talus or calcaneus. He does have a spur noted. The base of the fifth metatarsal is normal. Other additions or changes: Patient requested 4 to 5 days off. Patient was not given time off. Radiography Diagnostic Testing: Clinical Impression(s) from Imaging Studies Ankle X-Ray 01/27/23 15:40 IMPRESSION: No acute bone or joint abnormality. Electronically Signed: Valerio Muhammad MD at 15:55 EDT , Discharge Plan Triage Chief Complaint: Lower Extremity Injury ED Midlevel Provider: Narda Vargas ED Provider: Julian Beard Dx/Rx/DC Orders Clinical Impression: Left ankle sprain Instructions: ED Ankle Sprain (Adult) Prescriptions: No Action NK Stand Alone Forms: ED Work / School Excuse Primary Care Provider: Emy Weeks Referrals: Emy Weeks MD [Primary Care Provider] - Activity Restrictions/Additional Instructions: Please ice your ankle several times a day for the next few days, alternate Tylenol and ibuprofen for your pain , keep ankle elevated when you can. Disposition Disposition: Home, Self Care Discharge Date/Time: 01/27/23 16:12
[2023-01-27] MEDS: Ibuprofen 200 MG Tablet 400 MG PO (15:28)
--- NOTE | 2023-01-27 15:40 | RAD_ITS ---
EXAM: XR LEFT ANKLE COMPLETE, 3 OR MORE VIEWS CLINICAL INDICATION: Injury/Pain TECHNIQUE: Frontal, lateral and oblique views of the left ankle. COMPARISON: No relevant prior studies available. FINDINGS: BONES/JOINTS: No acute fracture or subluxation. Plantar calcaneal spur noted. SOFT TISSUES: Soft tissue swelling is noted. No radiopaque foreign body. RAD/Ankle min 3 Views IMPRESSION: No acute bone or joint abnormality. Electronically Signed: Valerio Muhammad MD at 15:55 EDT ,
== END 2023-01-27 16:12 | disposition home or self-care (01) ==
PROVIDERS: Emergency Provider Emergency Medicine; PCP Internal Medicine; Visit Provider Emergency Medicine
DX: S93.402A Sprain of unspecified ligament of left ankle, initial encounter (principal); F17.210 Nicotine dependence, cigarettes, uncomplicated; X58.XXXA Exposure to other specified factors, initial encounter; Y92.69 Other specified industrial and construction area as the place of occurrence of the external cause
CPT/HCPCS: 73610; 99282